=== PATIENT | male | born 2005 | race Caucasian/White ===

== ENCOUNTER 2025-03-03 10:02 | Emergency (ER) | payer OTHER ==
[~2025-03-03] VITALS: Ht 172.7 cm; Wt 74.8 kg
[2025-03-03] MEDS: IV NS 0.9% 1,000 ML BAG IV ONE (11:04)
[2025-03-03 11:15] LABS: PLATELET COUNT (AUTO) 289 K/uL (150-450); RED BLOOD CELL COUNT(AUTO) 5.43 MIL/uL (4.5-6.0); RED CELL DISTRIBUTION WIDTH 13.7 % (11.5-15.0); WHITE BLOOD COUNT (AUTO) 8.5 K/uL (4.3-11.0)
[2025-03-03 11:21] LABS: CALCIUM, SERUM 9.2 mg/dL (8.5-10.1); CREATININE 1.0 mg/dL (0.6-1.3); SODIUM SERUM 137.0 mmol/L (136-145); UREA NITROGEN, BLOOD 13.0 mg/dL (7-18)
[2025-03-03 12:44] VITALS: BP 126/75; TEMP 97.9; O2SAT 100
== END 2025-03-03 12:45 | disposition home or self-care (01) ==
LOC: ER 10:23
DX: R42 Dizziness and giddiness (principal); H53.8 Other visual disturbances; R51.9 Headache, unspecified; R11.10 Vomiting, unspecified
CPT/HCPCS: 99284; 96360; 93005; 85025; 80048; 36415; J7030